=== PATIENT | male | born 1975 | race Caucasian/White ===

== ENCOUNTER 2019-11-20 19:25 | Observation (INO) | payer OTHER ==
[~2019-11-20] VITALS: Ht 182.9 cm; Wt 79.5 kg
[~2019-11-20 19:25] MED LIST: ERYT1OIN6 OP
[2019-11-20 19:58] LABS: BASOPHILS # (AUTO) 0.1 X10'3 (0-0.2); BASOPHILS % (AUTO) 1.2 % (0-1); EOSINOPHILS # (AUTO) 0.1 X10'3 (0-0.9); EOSINOPHILS % (AUTO) 0.7 % (0-6); HEMATOCRIT 36.8 % (42.0-52.0); HEMOGLOBIN 13.1 g/dl (14.0-17.9); LYMPHOCYTES # (AUTO) 3.8 X10'3 (1.1-4.8); LYMPHOCYTES % (AUTO) 37.3 % (21-51); MEAN CORPUSCULAR HEMOGLOBIN 34.8 PG (27.0-31.0); MEAN CORPUSCULAR HGB CONC 35.6 g/dL (33.0-36.5); MEAN CORPUSCULAR VOLUME 97.7 FL (78-98); MEAN PLATELET VOLUME 6.5 FL (7.4-10.4); MONOCYTES # (AUTO) 0.8 X10'3 (0-0.9); MONOCYTES % (AUTO) 7.7 % (2-12); NEUTROPHILS # (AUTO) 5.4 X10'3 (1.8-7.7); NEUTROPHILS % (AUTO) 53.1 % (42-75); PLATELET COUNT 273 X10'3 (140-440); RED BLOOD COUNT 3.77 X10'6 (4.70-6.10); RED CELL DISTRIBUTION WIDTH 13.1 % (11.5-14.5); WHITE BLOOD COUNT 10.2 X10'3 (4.5-11.0)
[2019-11-20 20:04] LABS: ALANINE AMINOTRANSFERASE 30 U/L (12-78); ALBUMIN 4.2 G/DL (3.4-5.0); ALBUMIN/GLOBULIN RATIO 1.2 (1.1-1.5); ALKALINE PHOSPHATASE 63 IU/L (46-116); ANION GAP 10 (8-16); ASPARTATE AMINO TRANSFERASE 26 U/L (10-37); BILIRUBIN,TOTAL 0.2 MG/DL (0.1-1.0); BLOOD UREA NITROGEN 4 MG/DL (7-18); BUN/CREATININE RATIO 4.9 (5.4-32.0); CALCIUM 8.2 MG/DL (8.5-10.1); CHLORIDE 92 MMOL/L (99-107); CREATININE 0.82 MG/DL (0.60-1.10); GLUCOSE 103 MG/DL (70-104); SODIUM 128 MMOL/L (135-145); TOTAL CARBON DIOXIDE 25.9 MMOL/L (24-32); TOTAL PROTEIN 7.6 G/DL (6.4-8.2); eGFR > 90 ML/MIN
[2019-11-20] MEDS ORDERED: ASPI-1264 PO (20:22)
--- NOTE | 2019-11-20 20:22 | NUR ---
Reviewed lab results with PA and informed provider that pt. had already taken three Aspirin 325 at home at the onset of CP.
[2019-11-20] MEDS ORDERED: nitroGLYCERIN 0.4mg SUBLingual tab SL STA (20:32)
--- NOTE | 2019-11-20 20:37 | NUR ---
BREAKING PRIMARY RN. NITRO PRN FOR CP ORDERED. PT DOES NOT HAVE CP AT THIS TIME, WILL PASS ALONG TO PRIMARY RN AND CONTINUE TO MONITOR
[2019-11-20] MEDS ORDERED: potassium Cl 20 mEq SR tablet PO PRN ×2 (21:00)
[2019-11-20] MEDS ORDERED: temazepam 15mg capsule PO PRN (21:00)
[2019-11-20] MEDS ORDERED: mag hydrox/Alum hydrox/simeth 30ml oral suspension PO PRN (21:00)
[2019-11-20] MEDS ORDERED: regadenoson 0.4mg/5ml syringe IV ONE (21:00)
[2019-11-20] MEDS ORDERED: acetaminophen 325mg tablet PO PRN (21:00)
[2019-11-20] MEDS ORDERED: magnesium Cl slow-release 64mg tablet PO PRN (21:00)
[2019-11-20] MEDS ORDERED: magnesium 2GM in 50ml NS 50 ML IV PRN (21:00)
[2019-11-20] MEDS ORDERED: ondansetron/PF 4mg/2ml inj IV PRN (21:00)
[2019-11-20] MEDS ORDERED: magnesium 4gm in 100ml NS 100 ML IV PRN (21:00)
[2019-11-20] MEDS ORDERED: metoprolol tartrate 1mg/ml inj IV PRN (21:00)
[2019-11-20] MEDS ORDERED: nitroGLYCERIN 0.4mg SUBLingual tab SL PRN ×2 (21:00)
[2019-11-20] MEDS ORDERED: magnesium hydroxide 30ml (MOM) UD suspension PO PRN (21:00)
[2019-11-20] MEDS ORDERED: HYDROcodone/acetaminophen 5mg/325mg tablet PO PRN (21:00)
[2019-11-20] MEDS ORDERED: potassium CL 10mEq/100ml bag 100 ML IV PRN ×2 (21:00)
[2019-11-20] MEDS ORDERED: aminophylline 250mg/10ml inj. IV PRN (21:00)
[2019-11-20] MEDS ORDERED: regadenoson 0.4mg/5ml syringe IV PRN (21:10)
[2019-11-20 21:30] LABS: URINE AMPHETAMINE SCREEN NEGATIVE (Neg); URINE BARBITUATE SCREEN NEGATIVE (Neg); URINE BENZODIAZEPINES SCREEN NEGATIVE (Neg); URINE CANNABINOID SCREEN NEGATIVE (Neg); URINE COCAINE SCREEN NEGATIVE (Neg); URINE METHADONE SCREEN NEGATIVE (Neg); URINE OPIATE SCREEN NEGATIVE (Neg); URINE PHENCYCLIDINE SCREEN NEGATIVE (Neg)
--- NOTE | 2019-11-20 21:30 | NUR ---
Patient transferred up from ER via wheelchair and walked to bed. Vitals stable at transfer of care. patient placed on tele, MRSA swab collected, patient oriented to room and call light and plan of care. all current needs met.
[2019-11-20 21:35] VITALS: BP 125/73
[2019-11-20] MEDS: nicotine 21mg patch - 24 hr TD SCH (23:58)
[2019-11-21] VITALS (11 sets, daily range): BP systolic 109–141; BP diastolic 65–108
--- NOTE | 2019-11-21 06:20 | NUR ---
Problems reprioritized. Patient report given, questions answered & plan of care reviewed with Veena CHARLTON. Patient stable at transfer of care, all current needs met
[2019-11-21 07:36] LABS: BASOPHILS % (AUTO) 0.3 % (0-1); EOSINOPHILS # (AUTO) 0.1 X10'3 (0-0.9); EOSINOPHILS % (AUTO) 1.6 % (0-6); HEMATOCRIT 42.7 % (42.0-52.0); HEMOGLOBIN 14.7 g/dl (14.0-17.9); LYMPHOCYTES # (AUTO) 2.1 X10'3 (1.1-4.8); LYMPHOCYTES % (AUTO) 31.6 % (21-51); MEAN CORPUSCULAR HEMOGLOBIN 33.8 PG (27.0-31.0); MEAN CORPUSCULAR HGB CONC 34.3 g/dL (33.0-36.5); MEAN CORPUSCULAR VOLUME 98.6 FL (78-98); MEAN PLATELET VOLUME 6.6 FL (7.4-10.4); MONOCYTES # (AUTO) 0.6 X10'3 (0-0.9); MONOCYTES % (AUTO) 9.5 % (2-12); NEUTROPHILS # (AUTO) 3.7 X10'3 (1.8-7.7); PLATELET COUNT 300 X10'3 (140-440); RED BLOOD COUNT 4.33 X10'6 (4.70-6.10); RED CELL DISTRIBUTION WIDTH 13.8 % (11.5-14.5); WHITE BLOOD COUNT 6.6 X10'3 (4.5-11.0)
[2019-11-21] MEDS: nicotine 21mg patch - 24 hr TD SCH (07:36)
[2019-11-21 07:53] LABS: ALANINE AMINOTRANSFERASE 32 U/L (12-78); ALBUMIN 4.4 G/DL (3.4-5.0); ALBUMIN/GLOBULIN RATIO 1.3 (1.1-1.5); ALKALINE PHOSPHATASE 63 IU/L (46-116); ANION GAP 10 (8-16); ASPARTATE AMINO TRANSFERASE 27 U/L (10-37); BILIRUBIN,TOTAL 0.3 MG/DL (0.1-1.0); BLOOD UREA NITROGEN 4 MG/DL (7-18); BUN/CREATININE RATIO 5.3 (5.4-32.0); CALCIUM 8.7 MG/DL (8.5-10.1); CHLORIDE 102 MMOL/L (99-107); CREATININE 0.76 MG/DL (0.60-1.10); GLUCOSE 75 MG/DL (70-104); POTASSIUM 4.1 MMOL/L (3.5-5.1); SODIUM 139 MMOL/L (135-145); TOTAL CARBON DIOXIDE 26.9 MMOL/L (24-32); TOTAL PROTEIN 7.9 G/DL (6.4-8.2); eGFR > 90 ML/MIN
[2019-11-21 07:57] LABS: MAGNESIUM 2.2 MG/DL (1.5-2.4)
[2019-11-21] MEDS ORDERED: K and/or MAG REPLACEMENT MC SCH (08:00)
[2019-11-21] MEDS ORDERED: docusate sod 100mg capsule PO SCH (08:00)
[2019-11-21] MEDS ORDERED: aspirin 81mg tab.chew PO SCH (08:00)
[2019-11-21] MEDS ORDERED: atorvastatin 10mg tablet PO SCH (08:00)
--- NOTE | 2019-11-21 11:12 | NUR ---
Rm [id number], Cullen. Patient has active order for echo, is back in room after carlos. Thank you
--- NOTE | 2019-11-21 12:15 | NUR ---
Rm [id number], Cullen. Please call with eta FOR ECHO, this is for a pending discharge.
--- NOTE | 2019-11-21 12:20 | NUR ---
promotional table spacer PAGER ID: [phone] MESSAGE: Arben 302uCllen Nicole. Pt's carlos results are up, I will order a heart healthy diet and feed him unless otherwise instructed, Veena Ponce18
--- NOTE | 2019-11-21 15:17 | NUR ---
PAGER ID: [phone] MESSAGE: [id number], Cullen. Pt's preliminary echo report is up. And he would like something for anxiety when discharged please. Veena [id number]
[2019-11-21] MEDS ORDERED: LORA-269 PO (16:29)
--- NOTE | 2019-11-21 17:07 | NUR ---
Patient was discharged home at 1704, reviewed packet before signing. PIV was removed and tele was d/c'd, RX was given to the patient. Patient was walked down and left via private vehicle.
== END 2019-11-21 17:04 | disposition home or self-care (01) ==
LOC: ER 19:26 → ED HOLD 20:58 → PCU 3S 21:40
PROVIDERS: ADMIT Family Medicine; ATTEND Family Medicine
DX: R07.89 Other chest pain (principal); R79.89 Other specified abnormal findings of blood chemistry; F41.9 Anxiety disorder, unspecified; I20.0 Unstable angina; F17.200 Nicotine dependence, unspecified, uncomplicated; Z79.899 Other long term (current) drug therapy
CPT/HCPCS: 36415; 71045; 78452; 80053; 80305; 83735; 83880; 84484; 85025; 87081; 93005; 93017; 93306; 99285; A9500; G0378; J2785

== ENCOUNTER 2020-01-30 18:16 | Emergency (ER) | payer OTHER ==
[~2020-01-30] VITALS: Ht 182.9 cm; Wt 80.0 kg
[~2020-01-30 18:16] MED LIST changes: +ASPI-611 PO; -ERYT1OIN6 OP; +SOTA80TA46 PO
[2020-01-30 18:57] LABS: BASOPHILS % (AUTO) 0.2 % (0-1); EOSINOPHILS # (AUTO) 0.4 X10'3 (0-0.9); EOSINOPHILS % (AUTO) 3.2 % (0-6); HEMATOCRIT 39.2 % (42.0-52.0); HEMOGLOBIN 13.8 g/dl (14.0-17.9); LYMPHOCYTES # (AUTO) 3.7 X10'3 (1.1-4.8); LYMPHOCYTES % (AUTO) 32.8 % (21-51); MEAN CORPUSCULAR HEMOGLOBIN 34.5 PG (27.0-31.0); MEAN CORPUSCULAR HGB CONC 35.3 g/dL (33.0-36.5); MEAN CORPUSCULAR VOLUME 97.8 FL (78-98); MEAN PLATELET VOLUME 6.2 FL (7.4-10.4); MONOCYTES % (AUTO) 8.5 % (2-12); NEUTROPHILS # (AUTO) 6.3 X10'3 (1.8-7.7); NEUTROPHILS % (AUTO) 55.3 % (42-75); PLATELET COUNT 341 X10'3 (140-440); RED CELL DISTRIBUTION WIDTH 13.2 % (11.5-14.5); WHITE BLOOD COUNT 11.4 X10'3 (4.5-11.0)
[2020-01-30 19:05] LABS: ALANINE AMINOTRANSFERASE 26 U/L (12-78); ALBUMIN 4.5 G/DL (3.4-5.0); ALBUMIN/GLOBULIN RATIO 1.2 (1.1-1.5); ALKALINE PHOSPHATASE 72 IU/L (46-116); ANION GAP 9 (8-16); ASPARTATE AMINO TRANSFERASE 27 U/L (10-37); BILIRUBIN,TOTAL 0.3 MG/DL (0.1-1.0); BLOOD UREA NITROGEN 7 MG/DL (7-18); CALCIUM 8.5 MG/DL (8.5-10.1); CHLORIDE 93 MMOL/L (99-107); CREATININE 0.87 MG/DL (0.60-1.10); GLUCOSE 88 MG/DL (70-104); POTASSIUM 3.7 MMOL/L (3.5-5.1); SODIUM 130 MMOL/L (135-145); TOTAL CARBON DIOXIDE 27.9 MMOL/L (24-32); TOTAL PROTEIN 8.2 G/DL (6.4-8.2); eGFR > 90 ML/MIN
[2020-01-30 19:15] LABS: TROPONIN I < 0.04 NG/ML (0.0-0.05)
--- NOTE | 2020-01-30 20:56 | NUR ---
Pt resting with HR 62, denies any pain or SOB.
[2020-01-30 21:39] VITALS: BP 133/88
== END 2020-01-30 21:40 | disposition home or self-care (01) ==
LOC: ER 21:25
DX: R07.89 Other chest pain (principal); R00.2 Palpitations; I47.1 Supraventricular tachycardia; Z86.73 Personal history of transient ischemic attack (TIA), and cerebral infarction without residual deficits; Z91.011 Allergy to milk products; Z79.82 Long term (current) use of aspirin; Z79.899 Other long term (current) drug therapy
CPT/HCPCS: 36415; 71045; 80053; 83880; 84484; 85025; 93005; 99285

== ENCOUNTER 2020-08-09 11:07 | Emergency (ER) | payer OTHER ==
[~2020-08-09] VITALS: Ht 182.9 cm; Wt 79.5 kg
--- NOTE | 2020-08-09 11:44 | NUR ---
DEPUTY SHERIFF AT BEDSIDE FOR LAB DRAW.
[2020-08-09 12:07] LABS: ANION GAP 10 (8-16); BLOOD UREA NITROGEN 4 MG/DL (7-18); BUN/CREATININE RATIO 5.1 (5.4-32.0); CALCIUM 8.8 MG/DL (8.5-10.1); CHLORIDE 98 MMOL/L (99-107); CREATININE 0.79 MG/DL (0.60-1.10); GLUCOSE 83 MG/DL (70-104); SODIUM 135 MMOL/L (135-145); TOTAL CARBON DIOXIDE 27.4 MMOL/L (24-32); eGFR > 90 ML/MIN
[2020-08-09 13:27] VITALS: BP 125/90
== END 2020-08-09 13:29 | disposition home or self-care (01) ==
LOC: ER 11:07
DX: I47.1 Supraventricular tachycardia (principal); Z91.011 Allergy to milk products
CPT/HCPCS: 36415; 80048; 83735; 93005; 99284

== ENCOUNTER 2020-09-12 06:55 | Outpatient (CLI) | payer OTHER ==
[2020-09-12 07:35] LABS: ABG BASE EXCESS 1.9 mmol/L (-2.0-2.0); ABG HCO3 26.2 mmol/L (22.0-26.0); ABG OXYGEN SATURATION 97.2 % (94-97); ABG PCO2 (T) 39.7 mmHg (35.0-48.0); ABG PO2 (T) 97.1 mmHg (75.0-100.0); ALLEN'S TEST POSITIVE; FCOHb 4.6 % (0.0-3.9); FMetHb 0.3 % (0.0-1.5); FO2Hb 92.4 % (94-97); TOTAL HEMOGLOBIN 14.6 G/dl (14.0-18.0)
== END 2020-09-12 23:59 | disposition home or self-care (01) ==
LOC: RT 06:55
PROVIDERS: ATTEND Internal Medicine Pulmonary Disease
DX: R06.02 Shortness of breath (principal)
CPT/HCPCS: 36600; 82803; 85018; 94010; 94727; 94729

== ENCOUNTER 2021-01-12 11:15 | Emergency (ER) | payer OTHER ==
[~2021-01-12] VITALS: Ht 182.9 cm; Wt 85.0 kg
[2021-01-12 13:24] LABS: BASOPHILS % (AUTO) 0.5 % (0-1); EOSINOPHILS # (AUTO) 0.1 X10'3 (0-0.9); EOSINOPHILS % (AUTO) 2.5 % (0-6); HEMATOCRIT 43.5 % (42.0-52.0); HEMOGLOBIN 15.2 g/dl (14.0-17.9); LYMPHOCYTES # (AUTO) 1.5 X10'3 (1.1-4.8); LYMPHOCYTES % (AUTO) 31.8 % (21-51); MEAN CORPUSCULAR HEMOGLOBIN 33.8 PG (27.0-31.0); MEAN CORPUSCULAR HGB CONC 34.9 g/dL (33.0-36.5); MEAN CORPUSCULAR VOLUME 96.8 FL (78-98); MEAN PLATELET VOLUME 6.8 FL (7.4-10.4); MONOCYTES # (AUTO) 0.7 X10'3 (0-0.9); MONOCYTES % (AUTO) 14.2 % (2-12); NEUTROPHILS # (AUTO) 2.5 X10'3 (1.8-7.7); PLATELET COUNT 277 X10'3 (140-440); RED CELL DISTRIBUTION WIDTH 13.3 % (11.5-14.5); WHITE BLOOD COUNT 4.9 X10'3 (4.5-11.0)
[2021-01-12 13:39] LABS: ALANINE AMINOTRANSFERASE 65 U/L (12-78); ALBUMIN 3.8 G/DL (3.4-5.0); ALKALINE PHOSPHATASE 65 IU/L (46-116); ANION GAP 10 (8-16); ASPARTATE AMINO TRANSFERASE 58 U/L (10-37); BILIRUBIN,TOTAL 0.3 MG/DL (0.1-1.0); BLOOD UREA NITROGEN 6 MG/DL (7-18); BUN/CREATININE RATIO 8.8 (5.4-32.0); CALCIUM 8.6 MG/DL (8.5-10.1); CHLORIDE 100 MMOL/L (99-107); CREATININE 0.68 MG/DL (0.60-1.10); GLUCOSE 88 MG/DL (70-104); MAGNESIUM 2.1 MG/DL (1.5-2.4); POTASSIUM 4.2 MMOL/L (3.5-5.1); SODIUM 138 MMOL/L (135-145); TOTAL CARBON DIOXIDE 27.8 MMOL/L (24-32); TOTAL PROTEIN 7.6 G/DL (6.4-8.2); eGFR > 90 ML/MIN
[2021-01-12 14:52] VITALS: BP 126/86
== END 2021-01-12 15:06 | disposition home or self-care (01) ==
LOC: ER 11:16
DX: R00.2 Palpitations (principal); Z91.011 Allergy to milk products
CPT/HCPCS: 36415; 71045; 80053; 83735; 84484; 85025; 93005; 99285